=== PATIENT | female | born 1950 | race Caucasian/White ===

== ENCOUNTER → 2017-02-17 | Outpatient (CLI) | payer OTHER ==
[~2017-02-17] VITALS: Ht 177.8 cm; Wt 67.0 kg
[~2017-02-17] MED LIST: BIOTIN1000 MICRO PO; CLARITIN-D 121 EACH PO; COLACE100 MG PO; DAILY VITAMIN1 EAC4 PO; DICLOFENAC SODI50 MG PO; MIRALAX17 GM PO; PREMARIN VAGI42.5 GM TP; VIACTIV SOFT C1 EACH PO
[2017-02-17 11:12] VITALS: BP 133/75
== END | disposition home or self-care (01) ==
LOC: IVINF 10:54
DX: M81.0 Age-related osteoporosis without current pathological fracture (principal)
CPT/HCPCS: 96365; J3489